=== PATIENT | female | born 1950 | race Caucasian/White ===

== ENCOUNTER → 2017-07-07 | Outpatient (REF) ==
[~2017-07-07] MED LIST: BUP100 PO; DIAZ2TAB74 PO; ESTR-33 PO; GLUC100026 PO; HYDR-2966 PO; LIO25 PO; MEL7.5 PO; MULT1TAB64 PO; OMEP-137 PO; PROG200C PO; TRAZ150T8 PO
--- NOTE | 2017-07-07 15:47 | RADIOLOGY IMAGING REPORT ---
FACILITY: [facility] - [place] PATIENT NAME: Gris Conway : 1950 MR: [id number] V: [id number] EXAM DATE: ORDERING PHYSICIAN: RANDI HARPER TECHNOLOGIST: Location: [facility] [place] Patient: Gris Conway : 1950 Visit/Account:[id number] Date of Sevice: 07/07/2017 Exam type: HAND 3 OR MORE VIEW BILATERAL History: Arthritis, pain in left wrist and thumb x3 months Comparison: None. Findings: There are moderate degenerative changes involving the first carpometacarpal articulation. There are mild subchondral cystic changes involving the heads of the left second and third metacarpals. IMPRESSION: 1. Moderate degenerative changes involving the first carpal metacarpal articulation Mild subchondral cystic changes involving the heads of the left second and third metacarpals Report Dictated By: Twila Pizano MD at 07/07/2017 3:42 PM Report E-Signed By: Twila Pizano MD at 07/07/2017 3:44 PM WSN:[email or web address]
== END ==
LOC: RAD 14:39
PROVIDERS: ATTEND Orthopaedic Surgery Orthopaedic Surgery of the Spine
DX: M18.12 Unilateral primary osteoarthritis of first carpometacarpal joint, left hand (principal)

== ENCOUNTER → 2017-09-21 | Outpatient (REF) ==
--- NOTE | 2017-09-21 14:49 | RADIOLOGY IMAGING REPORT ---
FACILITY: [facility] - [place] PATIENT NAME: Gris Conway : 1950 MR: [id number] V: [id number] EXAM DATE: ORDERING PHYSICIAN: DIONISIO PEREIRA TECHNOLOGIST: Location: [facility] Patient: Gris Conway : 1950 Visit/Account:[id number] Date of Sevice: 09/21/2017 Exam type: CHEST PA AND LAT History: Previous abnormal chest x-ray, six month follow-up Comparison: January 12, 2017. Findings: Small amount linear stranding consistent with scarring is noted in the left lower lobe. Calcified ri ght breast implant also again seen. There is no evidence of acute appearing infiltrates pleural effu sions or pulmonary edema. Vague nodular density is again seen projecting over the medial right upper lung field. Cardiac silhouette is normal in size. There are mild spondylotic changes of the thorac ic spine IMPRESSION: 1. Vague nodular density persists over the medial right upper thorax. Although this could represent a superimposed shadow or even the persistence CT is recommended for further evaluation Report Dictated By: Twila Pizano MD at 09/21/2017 2:41 PM Report E-Signed By: Twila Pizano MD at 09/21/2017 2:45 PM WSN:[email or web address]
== END ==
LOC: RAD 11:18
PROVIDERS: ATTEND Nurse Practitioner
DX: R91.8 Other nonspecific abnormal finding of lung field (principal)
CPT/HCPCS: 71046

== ENCOUNTER → 2017-10-01 | Outpatient (REF) ==
[~2017-10-01] MED LIST changes: +IOPAMIDOL 76% 75 ML INFUS BTL 75 ML ONE
--- NOTE | 2017-10-01 15:55 | RADIOLOGY IMAGING REPORT ---
FACILITY: [facility] PATIENT NAME: Gris Conway : 1950 MR: [id number] V: [id number] EXAM DATE: ORDERING PHYSICIAN: DIONISIO PEREIRA TECHNOLOGIST: Location: [facility] [place] Patient: Gris Conway : 1950 Visit/Account:[id number] Date of Sevice: 10/01/2017 CHEST W CONTRAST History: Abnormal chest x-ray TECHNIQUE: Contiguous axial images were performed through the chest to the level of the adrenal gla nds following the administration of IV contrast. Coronal and sagittal reformatting was also perform ed. Dose Lowering Technique One of the following dose optimization techniques was utilized in the performance of this exam: Autom ated exposure control; adjustment of the mA and/or kV according to the patient's size; or use of an i terative reconstruction technique. Specific details can be referenced in the facility's radiology C T exam operational policy. Contrast: 75 mL Isovue-370 COMPARISON STUDIES: Chest PA and lateral September 21, 2017. Lungs / Pleura: There is no demonstration of a pulmonary nodule pulmonary infiltrate or pleural eff usion. There are hypertrophic changes seen at the costochondral cartilage anteriorly of the right fi rst rib. This may represent a superimposed shadow. Mediastinum/nodes: negative. Heart and vessels: negative. Musculoskeletal / Body wall: There is a densely calcified subglandular right breast implant. there are mild diffuse spondylotic changes of the thoracic spine with moderate degenerative changes at T3-4 and at and T8-9 and at L2-3 mild degenerative changes are seen at both shoulder joints Upper abdomen: Visualized abdominal viscera negative. IMPRESSION: There is no demonstration of pulmonary nodules. There are hypertrophic changes seen at the costochon dral cartilage anteriorly of the right first rib which may have represented a superimposed shadow. Densely calcified subglandular right breast implant Spondylotic changes of the thoracolumbar spine Report Dictated By: Twila Pizano MD at 10/01/2017 3:37 PM Report E-Signed By: Twila Pizano MD at 10/01/2017 3:51 PM WSN:[email or web address]
--- NOTE | 2017-10-01 15:56 | RADIOLOGY IMAGING REPORT ---
FACILITY: [facility] - [place] PATIENT NAME: XENIA VICTOR : [id number] MR: [id number] V: [id number] EXAM DATE: ORDERING PHYSICIAN: DIONISIO PEREIRA TECHNOLOGIST: Kandy Borja PROCEDURE:BILATERAL DIAGNOSTIC DIGITAL MAMMOGRAM WITH CAD ASSISTED INTERPRETATION & 3D TOMOSYNTHESIS COMPARISON:Prior mammograms dated 09/26/14, 07/07/13, 05/10/12, 10/22/10 INDICATIONS:RIGHT BREAST IMPLANT LEAKAGE FINDINGS: Again noted is the right subglandular breast implant. Marked capsular contraction & calcifications are again seen. Globules of silicone also again noted superior, anterior & lateral to the right breast implant similar to the prior study. Small amount of fibroglandular tissue is seen throughout the breasts & appears relatively stable. No breast implant is identified in the left. There is no demonstration of malignant appearing mass or calcification in either breast. DIAGNOSTIC CATEGORY 2--BENIGN FINDING. RECOMMENDATIONS: ROUTINE MAMMOGRAM AND CLINICAL EVALUATION. IMPRESSION: BIRADS 2: Benign finding Leaking right breast silicone implant appears similar to the prior study. Dictated by: Twila Pizano M.D. on 10/01/2017 at 14:25 Transcribed by: RODRIGO on 10/01/2017 at 14:46 Approved by: Twila Pizano M.D. on 10/01/2017 at 15:54 [facility]
== END ==
LOC: CT 05:58
PROVIDERS: ATTEND Nurse Practitioner
DX: T85.43XA Leakage of breast prosthesis and implant, initial encounter (principal); R93.8 Abnormal findings on diagnostic imaging of other specified body structures
CPT/HCPCS: 71260; 77066; Q9967

== ENCOUNTER → 2017-10-14 | Outpatient (REF) ==
[~2017-10-14] MED LIST changes: -IOPAMIDOL 76% 75 ML INFUS BTL 75 ML ONE
--- NOTE | 2017-10-14 13:25 | RADIOLOGY IMAGING REPORT ---
FACILITY: [facility] PATIENT NAME: Gris Conway : 1950 MR: [id number] V: [id number] EXAM DATE: ORDERING PHYSICIAN: LARRY SERRANO [place]CHNOLOGIST: [place] [facility] [place]is [place] : 1950 Visit/Account:[id number] Date of Sevice: 10/14/2017 Exam type: WRIST LEFT MIN 3 VIEW History: Pain in left wrist radiating to proximal humerus, tripped over sidewalk oblique ago and land ed on left wrist Comparison: None. Findings: Four views of the left wrist reveal no gross evidence of acute fracture or dislocation. There are mi ld degenerative changes at the first carpometacarpal articulation IMPRESSION: 1. Mild generative changes of the first carpometacarpal articulation No evidence of acute fracture or dislocation seen involving the left wrist. If symptoms persist foll ow up imaging recommended to exclude an occult injury Report Dictated By: Twila Pizano MD at 10/14/2017 1:20 PM Report E-Signed By: Twila Pizano MD at 10/14/2017 1:22 PM WSN:[email or web address]
== END ==
LOC: RAD 11:18
PROVIDERS: ATTEND Family Medicine
DX: M25.532 Pain in left wrist (principal)

== ENCOUNTER → 2018-03-17 | Outpatient (CLI) | payer MEDICARE, MEDICAID ==
[~2018-03-17] MED LIST changes: +CHOL10005 PO; +ESTR10TA4 VG; +ESTR1POW41 MC; +LACT1CAP12; +LAMO200T3 PO; +LAMO25TA64 PO; +LEVO50TA86 PO; +PNEU0.5D3 IM; +PROG1.3G; +VITA100T4 PO; +VITA1CAP46 PO
[2018-03-17 10:58] LABS: PLATELET COUNT, AUTOMATED 296 K/uL (150-450)
[2018-03-17 11:14] LABS: LDL CHOLESTEROL 81 mg/dl
--- NOTE | 2018-03-17 16:01 | RADIOLOGY IMAGING REPORT ---
FACILITY: [facility] [place] PATIENT NAME: Gris Conway : 1950 MR: [id number] V: [id number] EXAM DATE: ORDERING PHYSICIAN: DEBORAH SIMON TECHNOLOGIST: Location: [facility] Patient: Gris Conway : 1950 Visit/Account:[id number] Date of Sevice: 03/17/2018 BONE MINERAL DENSITY HISTORY: Postmenopausal DEXA Scan Clinical history: Osteopenia. Comparison: None available. LUMBAR SPINE: The bone mineral density (BMD) measured from L1-L4 correlates with a Z-score 2.9 and a T-score of 1.2 which is Normal as defined by the World Health Organization. The corresponding risk of fracture in the lumbar spine is Not increased compared with a young adult reference population. HIP: Bone mineral density (BMD) measured in the Left total hip region correlates with a Z-score -0.5 and a T-score of -1.8 which is osteopenia as defined by the World Health Organization. The corresponding risk of fracture in the hip is increased between 3-4 times compared with a young adult reference popu [facility]. Bone mineral density (BMD) measured in the Femoral Neck region measures 0.775 g/cm2.. T score -1.9. Osteopenia. Fracture risk increased nearly 4 times Impression: 1. Lumbar spine: Normal. (Spuriously elevated bone density due to multiple endplate sclerotic lesi ons) 2. Left Total Hip: Osteopenia. 3. Femoral Neck: Bone Mineral Density is 0.755 g/cm2. Osteopenia The next DEXA scan of this patient should include the following sites: L1-L4 and the left hip. FRAX? WHO Fracture Risk Assessment Tool link: <http://www.shef.ac.uk/FRAX/tool.jsp?locationValue=9> PLEASE NOTE: 1) The World Health Organization defines low BMD as follows: T-score Normal > -1 Osteopenia < -1 and > -2.5 Osteoporosis < -2.5 without fractures Established osteoporosis < -2.5 with fractures 2) In general, you may wish to consider: Diagnosis Treatment Follow-up DEXA Normal BMD Prevention 2-3 years Osteopenia Prevention/therapy 1-2 years Osteoporosis Therapy Yearly 3) Fracture risk estimated from the T-score is more accurate for vertebral fractures (often spontane ous) than for hip fractures. Report Dictated By: Hiren Mckeon MD at 03/17/2018 3:54 PM Report E-Signed By: Hiren Mckeon MD at 03/17/2018 3:57 PM WSN:[email or web address]
== END ==
LOC: LAB 10:06
PROVIDERS: ATTEND Emergency Medicine
DX: Z00.00 Encounter for general adult medical examination without abnormal findings (principal); I10 Essential (primary) hypertension; Z78.0 Asymptomatic menopausal state; R79.89 Other specified abnormal findings of blood chemistry; G62.9 Polyneuropathy, unspecified; M85.88 Other specified disorders of bone density and structure, other site
CPT/HCPCS: 36415; 77080; 82040; 82247; 82310; 82374; 82435; 82465; 82565; 82607; 82947; 83718; 84075; 84132; 84155; 84295; 84443; 84450; 84460; 84478; 84520; 85025

== ENCOUNTER → 2018-03-23 | Outpatient (CLI) | payer MEDICARE, MEDICAID | LOC: AUD 12:45 | PROVIDERS: ATTEND Emergency Medicine | DX: H93.13 Tinnitus, bilateral (principal) | CPT/HCPCS: 92557; 92570 ==

== ENCOUNTER → 2018-03-30 | Outpatient (CLI) | payer MEDICARE, MEDICAID ==
[~2018-03-30] MED LIST changes: +DIPH0.5D12 IM; +FLU180SY11 IM; +LOSA25TA52 PO
== END ==
LOC: RESP 00:19
PROVIDERS: ATTEND Emergency Medicine
DX: R05 Cough (principal)
CPT/HCPCS: 94060; 94726; 94729

== ENCOUNTER → 2018-05-04 | Outpatient (CLI) | payer MEDICARE, MEDICAID ==
[~2018-05-04] MED LIST changes: +LOSA50TA74 PO
== END ==
LOC: LAB 13:59
PROVIDERS: ATTEND Emergency Medicine
DX: I10 Essential (primary) hypertension (principal)
CPT/HCPCS: 36415; 82310; 82374; 82435; 82565; 82947; 84132; 84295; 84520

== ENCOUNTER → 2018-11-09 | Outpatient (CLI) | payer MEDICARE, MEDICAID ==
[~2018-11-09] MED LIST changes: +BUPR300T56 PO; -DIPH0.5D12 IM; +DIPH0.5S2 IM; +LAMO200T45 PO; -LOSA25TA52 PO; +LOSA25TA57 PO; -LOSA50TA74 PO; +LOSA50TA80 PO; +MELO-205 PO
== END ==
LOC: LAB 15:25
PROVIDERS: ATTEND Emergency Medicine
DX: Z02.9 Encounter for administrative examinations, unspecified (principal)

== ENCOUNTER 2019-01-03 14:30 | Outpatient (RCR) | payer MEDICARE, MEDICAID ==
--- NOTE | 2018-11-10 22:28 | PT INITIAL EVALUATION ---
MEDICAL DIAGNOSIS: back pain TREATMENT DIAGNOSIS: same DATE OF ONSET: 02/09/18 SUBJECTIVE: Gris Conway presents to physical therapy with complaints of low back pain that started in Jan 2018 from running on uneven surface. She reports that the pain starts in her low back region and radiates down B LE's to her B knees. She reports that she feels like the pain is becoming worse. She reports that the pain is worse with sitting, standing, and walking. She reports that it feels better with bending. She reports that it occasionally bothers her sleep. She reports that she has normal bladder control since the low back pain started. She denies night pain or unexplained weight loss. She denies any surgery. She reports that she feels like the pain is worse with correction of posture. She reports that she feels like her muscle strength has not changed. She denies any numbness or tingling. She reports that nothing can touch this pain when it is at its worst. She rates that the most pain that she feels is 6- 9/10. She reports the best pain to be 0/10. Pain location is L3-5 spinous and facet with radiating pain down B LE's. Pain scale is 4 on a ten point pain scale. REHAB PROBLEM LIST: Increased Pain Decreased ROM Decreased Strength Decreased Endurance Decreased Balance Decreased Function Decreased Mobility Decreased Gait PREVIOUS MEDICAL HISTORY: See EMR OCCUPATION: Retired OBJECTIVE: Posture: She demonstrates minimal forward head, B rounded shoulders, increased thoracic kyphosis, and decreased lumbar lordosis. ROM: Trunk AROM: flexion: NIL with empty end feel. Extension: moderate restriction with empty end feel. side gliding R: minimal restriction with pulling pain. side gliding L: minimal restriction with pulling pain Strength: B hip abduction, extension, adduction, flexion, B knee flexion and extension, and B ankle PF and DF: 4+/5. Palpation: TTP: L3-5 spinous and facet with radiating pain down B LE's. Sensation: Intact L2-S2 Special Tests: Repeated extension: pain during the test and better following the test with increased trunk AROM. Mobility: Independent Gait: She demonstrated minimal gait deviations such as: decreased velocity, increased lateral trunk movement, decreased pelvic mobility, and increased double limb support. Balance: Will test in the future ASSESSMENT: Gris will benefit from skilled physical therapy addressing the listed impairments to improve function and return to prior level of function. Her provisional classification is posterior derangement that responded to extension based principles. Short Term Goals 2 weeks: Pt will demonstrate directional preference to improve function and QOL. 4 weeks: If pt demonstrates directional preference, she will demonstrate increased trunk AROM, centralized low back pain, and progressing to return to full function. 6 weeks: If pt demonstrates directional preference, she will demonstrated abolished low back pain, full trunk AROM in all directions, and return to prior level of function without any pain. Patient's Goals reduce pain PLAN: Patient to be seen for Manual Therapy/STM/MET Strengthening/condition Range of Motion Spinal Stabilization Work Hardening/Cond Stretching Neuromuscular Re-ed Closed Chain Program Posture/Body mechanics Home Exercise Program Therapeutic Activities 2x/Week for 6 Weeks If you have any questions, comments, or concerns about this report or plan, please contact me at . Thank you, Félix Valadez, PT, DPT MTDD
--- NOTE | 2019-01-03 15:56 | PT PLAN OF CARE ---
Physician: Marycarmen Bernard MD Patient is being seen: 2x/week Therapist: Félix Valadez, PT, DPT Medical Diagnosis: back pain Treatment Diagnosis: same Date of Onset: 02/09/18 Date of Initial Evaluation: 11/09/18 Date patient was last seen: 01/03/19 Number of treatments: 10 Number of cancellations/No shows: 1 INTERVENTIONS: Manual Therapy/STM/MET Strengthening/condition Range of Motion Spinal Stabilization Work Hardening/Cond Stretching Neuromuscular Re-ed Closed Chain Program Posture/Body mechanics Home Exercise Program Therapeutic Activities GOALS: 2 weeks: Pt will demonstrate directional preference to improve function and QOL. 4 weeks: If pt demonstrates directional preference, she will demonstrate increased trunk AROM, centralized low back pain, and progressing to return to full function. 6 weeks: If pt demonstrates directional preference, she will demonstrated abolished low back pain, full trunk AROM in all directions, and return to prior level of function without any pain. PATIENT'S GOAL: reduce pain Status of Patient's Goals: Progress well Patient Compliance: Good Prognosis: Good Reasons for continuing therapy: This is a discharge note for Gris Conway. She reports that she is doing much better. She reports that if she bends and lifts too much the pain comes on but it goes away quicker. If she does well throughout her day, she reports that she does not have any pain in her low back region or in her piriformis. She reports that she feels good enough to get on her own personalized home exercise program. She has progressed well within PT demonstrating improvements with trunk AROM in all directions; however, she did not have a directional preference and was in the other category; therefore, she responded well to stabilization within her core and hip regions to reduce pain and improve function. She will continue to have pain every once in a while; however, if she maintains her stability program, the pain will be dramatically less. Posture: She demonstrates minimal forward head, B rounded shoulders, increased thoracic kyphosis, and decreased lumbar lordosis. ROM: Trunk AROM: flexion: NIL with muscular end feel. Extension: NIL with muscular end feel. side gliding R: NIL with muscular end feel. side gliding L: NIL with muscular end feel Strength: B hip abduction, extension, adduction, flexion, B knee flexion and extension, and B ankle PF and DF: 4+/5. Mobility: Independent If you have any questions, please contact me at [phone]. Thank you, Félix Valadez, PT, DPT MTDD
== END 2019-01-03 16:26 | disposition home or self-care (01) ==
LOC: PT 14:30
PROVIDERS: ATTEND Emergency Medicine
DX: M54.5 Low back pain (principal)
CPT/HCPCS: 97162